=== PATIENT | female | born 1985 | race Caucasian/White ===

== ENCOUNTER 2020-03-13 11:30 | Outpatient (CLI) | payer OTHER, SELFPAY ==
--- NOTE | ~2020-03-13 | US_ITS ---
EXAMINATION: US thyroid EXAM DATE: 03/13/2020 11:52 INDICATION: Multinodular goiter, nontoxic. TECHNIQUE: Multiple grayscale and Doppler images of the thyroid were obtained (by a technologist who performed the scan) and subsequently reviewed. Individual nodules and recommendations may be reporte d in accordance with TI-RADS system as designated by the 2017 ACR White Paper TI-RADS committee. Jerome sebastian is made to prior examination from 08/24/2014. FINDINGS: The right thyroid lobe measures 5.4 x 1.7 x 1.8 cm, the left measuring 5.0 x 1.5 x 1.8 cm. The isthmu s measures 3 mm in thickness. Relatively homogeneous thyroid echogenicity with scattered subcentimete r thyroid nodules, largest up to 5 mm. These are not likely clinically significant, and are not defin itely changed compared to prior study in 2014. IMPRESSION: Stable multinodular goiter. Return to clinical follow-up and if additional palpable abnormality develops a repeat ultrasound can be obtained. Reviewed, dictated and finalized at location A.
== END 2020-03-13 11:31 | disposition home or self-care (01) ==
LOC: ANHIMG 11:32
PROVIDERS: PCP Internal Medicine; Visit Provider Internal Medicine Endocrinology, Diabetes & Metabolism
DX: E04.2 Nontoxic multinodular goiter (principal)
CPT/HCPCS: 76536

== ENCOUNTER 2020-11-03 11:58 | Emergency (ER) | payer OTHER, SELFPAY ==
[2020-11-03 12:20] VITALS: BP 151/91; PULSE 88; RESP 18; TEMP 36.6; O2SAT 99
--- NOTE | 2020-11-03 12:49 | ED.GENADULT ---
HPI - General Adult General Chief complaint: Ear Stated complaint: upper respiratory infection Source: patient and RN notes reviewed Mode of arrival: ambulatory History of Present Illness HPI narrative: This is a 35-year-old female who presented to urgent care with complaints of throat pain along with jaw and ear pain to the left side. Patient notes that approximately 1 month ago she developed the symptoms and her condition has worsened and she has taken [id number] ibuprofen for relief. Patient does not have a primary care physician due to insurance. She has not taken her home medication because she is unable to get a primary care physician due to her. Patient also notes that her blood pressure was slightly elevated, she notes that her life has been troublesome for the last few weeks. Patient will monitor her blood pressure and follow-up with her primary care physician if any medication is needed. The patient denies SOB, CP, palpitation, extremity numbness, lightheadedness, dizziness, constipation, diarrhea, chills, or fever. Related Data Home Medications Medication Instructions Recorded Confirmed dextroamphetamine-amphetamine 15 mg PO BID 11/03/20 11/03/20 [Adderall] Allergies Allergy/AdvReac Type Severity Reaction Status Date / Time No Known Allergies Allergy Verified 07/02/20 11:44 Review of Systems Review of Systems: Narrative: A 14 organ system Review of Systems was performed and pertinent positives included in the HPI, otherwise remaining ROS is negative. [facility] Past Medical History Medical History (Updated 11/03/20 @ 12:49 by BANDAR Boone) Obstructive sleep apnea Family History Family History (Updated 11/03/20 @ 12:53 by BANDAR Boone) Other Family history non-contributory Social History Social History Gender identity (if verbalized by the patient): Female Exam Narrative: Exam Narrative: GENERAL: This is a well-nourished, well-developed patient, in no apparent distress. HEAD: normocephalic, atraumatic. EYES: PERRL. Sclera clear/white. Vision is grossly intact. EARS: External ears normal, auditory canals clear and without drainage, TMs normal without perforation. Hearing grossly intact. NOSE: External nose normal with no obvious nasal discharge, nares without redness, no rhinorrhea. THROAT: Mucous membranes moist, posterior pharynx edematous with erythematous and enlarged tonsils. NECK: Neck supple, non-tender without lymphadenopathy, masses or thyromegaly. CARDIOVASCULAR: Regular rate and rhythm without murmurs, gallops, or rubs. RESPIRATORY: Clear to auscultation. Breath sounds equal bilaterally. No wheezes, rales, or rhonchi. GASTROINTESTINAL: Abdomen soft, non-tender, nondistended. Bowel sounds are active. No hepato-splenomegaly, or palpable masses. No guarding. SKIN: warm, intact with no suspicious lesions or rash, good texture and turgor. NEURO: awake, alert, and oriented to person, place and time. There were no obvious focal neurologic abnormalities. Steady gait EXTREMITIES: Normal range of motion. No edema. No calf tenderness. Negative Homans sign bilaterally. BACK: Nontender without deformity or crepitance. No flank tenderness. Course Course Emergency Course: Patient will discharge home with Augmentin and zyrv-[id number] medication Vital Signs Vital signs: Vital Signs Temperature 97.9 F 11/03/20 12:20 Pulse Rate 88 11/03/20 12:20 Respiratory Rate 18 11/03/20 12:20 Blood Pressure 151/91 H 11/03/20 12:20 Pulse Oximetry 99 11/03/20 12:20 Temperature 97.9 F 11/03/20 12:20 Pulse Rate 88 11/03/20 12:20 Respiratory Rate 18 11/03/20 12:20 Blood Pressure 151/91 H 11/03/20 12:20 Pulse Oximetry 99 11/03/20 12:20 Medical Decision Making Differential Diagnosis Differential Diagnosis: Otitis media, strep, pharyngitis, sinusitis, viral infection Vital Signs Vital Signs: Vital Signs Temperature 97.9 F 11/03/20 12:20
== END 2020-11-03 12:50 | disposition home or self-care (01) ==
PROVIDERS: Emergency Provider Nurse Practitioner
DX: J02.9 Acute pharyngitis, unspecified (principal); G47.33 Obstructive sleep apnea (adult) (pediatric); F41.9 Anxiety disorder, unspecified; F32.9 Major depressive disorder, single episode, unspecified
CPT/HCPCS: 87081; 87880; 99213; G0463

== ENCOUNTER 2021-10-31 12:15 | Emergency (ER) | payer OTHER, SELFPAY ==
[2021-10-31 12:36] VITALS: BP 132/77; PULSE 106; RESP 18; TEMP 36.3; O2SAT 99
--- NOTE | 2021-10-31 13:03 | ED.URI ---
HPI - URI/Sore Throat General Chief Complaint: Upper Respiratory Infection Stated Complaint: Headache,Body Aches,Cough Time Seen by Provider: 10/31/21 13:03 Source: patient Mode of arrival: ambulatory Limitations: no limitations History of Present Illness HPI Narrative: 36-year-old female presents with complaint of nasal congestion, cough, headaches, fatigue for 5 days. Reports today she feels like she cannot smell anything . Has not done a home COVID test. Is only taking ibuprofen to treat her symptoms. No chest pain or shortness of breath. Work will not let patient return until she has a COVID test. All systems reviewed and negative except as noted above. Related Data Home Medications Medication Instructions Recorded Confirmed dextroamphetamine-amphetamine 15 15 mg PO BID 11/03/20 10/31/21 mg tablet (Adderall) lisdexamfetamine 40 mg capsule 1 cap PO DAILY 10/31/21 10/31/21 (Vyvanse) metformin 500 mg tablet,extended 1 tablet PO BID 10/31/21 10/31/21 release 24 hr spironolactone 50 mg tablet 1 tablet PO DAILY 10/31/21 10/31/21 Allergies Allergy/AdvReac Type Severity Reaction Status Date / Time No Known Allergies Allergy Verified 10/31/21 12:32 Review of Systems Review of Systems: CONSTITUTIONAL: Denies fever, chills, or sweats. EYES: Denies visual changes, redness, or discharge. ENT: Reports rhinorrhea, congestion, sore throat. Denies CARDIOVASCULAR: Denies chest pain, palpitations, or edema. RESPIRATORY: Reports cough. Denies dyspnea. GASTROINTESTINAL: Denies abdominal pain, nausea, vomiting, or diarrhea. GENITOURINARY: Denies dysuria or hematuria. SKIN: Denies rash or itching. MUSCULOSKELETAL: Denies back pain, joint pain, or myalgia. NEUROLOGIC: Reports headache. Denies numbness, or weakness. PSYCHIATRIC: Denies anxiety or depression. All other systems reviewed are negative, except as documented in HPI. [facility] Past Medical History Medical History (Updated 10/31/21 @ 14:06 by Taylor Amaya NP) Obstructive sleep apnea Family History Family History (Updated 11/03/20 @ 12:53 by BANDAR Boone) Other Family history non-contributory Social History Social History Gender identity (if verbalized by the patient): Female Comments At time of signature, agree with nursing past medical, surgical, social and family history. There is no relevant family history pertinent to the presenting complaint. Exam Narrative: GENERAL: This is a well-nourished, well-developed patient, in no apparent distress. HEAD: normocephalic, atraumatic. EYES: PERRL. Sclera clear/white. Vision is grossly intact. EARS: External ears normal, auditory canals clear and without drainage, fluid to bilateral TMs. No erythema or perforation. NOSE: External nose normal with clear nasal drainage, erythema and congestion to nares. THROAT: Mucous membranes moist, mild erythema to posterior pharynx. NECK: Neck supple, non-tender without lymphadenopathy, masses or thyromegaly. CARDIOVASCULAR: Regular rate and rhythm without murmurs, gallops, or rubs. RESPIRATORY: Clear to auscultation. Breath sounds equal bilaterally. No wheezes, rales, or rhonchi. SKIN: warm, Dry, intact with no suspicious lesions or rash, good texture and turgor. NEURO: awake, alert, and oriented to person, place and time. There were no obvious focal neurologic abnormalities. EXTREMITIES: Normal range of motion to all extremities. Course Course Level of Care: Express Care Visit Vital Signs Vital signs: Vital Signs Temperature 36.3 C L 10/31/21 12:36 Pulse Rate 106 H 10/31/21 12:36 Respiratory Rate 18 10/31/21 12:36 Blood Pressure 132/77 10/31/21 12:36 Pulse Oximetry 99 10/31/21 12:36 Oxygen Delivery Room Air 10/31/21 12:36 Temperature 36.3 C L 10/31/21 12:36 Pulse Rate 106 H 10/31/21 12:36 Respiratory Rate 18 10/31/21 12:36 Blood Pressure 132/77 10/31/21 12:36 Pulse Oximetry 99 10/31/21 12:36
== END 2021-10-31 13:30 | disposition home or self-care (01) ==
PROVIDERS: Emergency Provider Nurse Practitioner Family
DX: J06.9 Acute upper respiratory infection, unspecified (principal); H65.03 Acute serous otitis media, bilateral; Z20.822 Contact with and (suspected) exposure to COVID-19; G47.33 Obstructive sleep apnea (adult) (pediatric)
CPT/HCPCS: 87426; 87804; 99213; C9803; G0463

== ENCOUNTER 2023-06-29 14:51 | Emergency (ER) | payer OTHER, SELFPAY ==
--- NOTE | 2023-06-29 14:54 | ED.FEMALEGU ---
HPI - Female Genitourinary General Chief complaint: Urogenital-Female Stated complaint: Urinary Problems Time Seen by Provider: 06/29/23 14:52 Source: patient Mode of arrival: ambulatory Limitations: no limitations History of Present Illness HPI Narrative: Becky is a 38-year-old female patient presenting to the clinic today with complaints of possible UTI. She reports she is having urgency to void and burning with urination that started this morning. Related Data Home Medications Medication Instructions Recorded Confirmed dextroamphetamine-amphetamine 15 15 mg PO BID 11/03/20 10/31/21 mg tablet (Adderall) lisdexamfetamine 40 mg capsule 1 cap PO DAILY 10/31/21 10/31/21 (Vyvanse) metformin 500 mg tablet,extended 1 tablet PO BID 10/31/21 10/31/21 release 24 hr spironolactone 50 mg tablet 1 tablet PO DAILY 10/31/21 10/31/21 Allergies Allergy/AdvReac Type Severity Reaction Status Date / Time No Known Allergies Allergy Verified 06/29/23 14:52 Review of Systems Review of Systems: Pertinent positives per HPI. Patient denies any fever, chills, rash, headache, visual changes, dizziness, cough, shortness of breath, chest pain, palpitations, nausea, vomiting, diarrhea, constipation, abdominal pain, or any urinary issues. [facility] Past Medical History Medical History Obstructive sleep apnea Family History Family History Other Family history non-contributory Social History Social History Gender identity (if verbalized by the patient): Female Comments At the time of my signature, I reviewed and agree with the nursing past medical, surgical, social, and family history. There is no relevant family history pertinent to the patient complaint. Exam Narrative: General: Well-developed, obese, in no apparent distress. Head: Normocephalic, atraumatic. Cardio: Regular rate and rhythm, s1 and s2 normal, no murmur appreciated. Resp: Clear to auscultation bilaterally, no rhonchi, rales, wheezing or rubs. Abdomen: Soft, pliable, bowel sounds present in all quadrants, non-tender to palpation, no organomegly, no CVAT tenderness. Course Course Emergency Course: Portions of this record may have been created with voice recognition software. Level of Care: Express Care Visit Vital Signs Vital signs: Vital signs reviewed MDM - Female Genitourinary MDM Narrative Medical decision making narrative: At the time of visit patient is resting comfortably on the exam table. Patient appears to be nontoxic. Labs: UA was obtained. Urine was positive for 1+ leukocyte, 1+ bili, and trace ketones Plan: Blood pressure is elevated in the clinic today. Recommend follow-up with her PCP to have this further evaluated. Will send in Macrobid and Pyridium for UTI/UTI symptoms. Supportive measures were discussed with the patient and they voiced understanding discharge instructions and agrees to treatment plan. Return precautions reviewed Differential Diagnosis Differential diagnosis: Likely urinary tract infection and cystitis Discharge Plan Discharge Clinical Impression: Elevated blood pressure reading in office without diagnosis of hypertension UTI (urinary tract infection) Qualifiers: Urinary tract infection type: acute cystitis Hematuria presence: without hematuria Qualified Code(s): N30.00 - Acute cystitis without hematuria Patient Disposition: Home, Self-Care Condition: Stable Instructions: Antibiotic Form, Urinary Tract Infection in Women (ED), Hypertension (ED) Additional Instructions: UA positive for 1+ leukocyte, trace a ketone, and 1+ bili-will send urine for culture. Recommend recheck with your PCP in 2 weeks Increase fluids and stay well hydrated Wipe front to back. May use wet wipes. Avoid tub baths If sexually
[2023-06-29 15:00] VITALS: BP 151/106; PULSE 124; RESP 16; TEMP 36.2; O2SAT 99
== END 2023-06-29 15:21 | disposition home or self-care (01) ==
PROVIDERS: Emergency Provider Nurse Practitioner Family
DX: N30.00 Acute cystitis without hematuria (principal); B96.20 Unspecified Escherichia coli [E. coli] as the cause of diseases classified elsewhere; R03.0 Elevated blood-pressure reading, without diagnosis of hypertension
CPT/HCPCS: 81003; 87077; 87086; 87186; 99213; G0463

== ENCOUNTER 2025-01-08 17:50 | Emergency (ER) | payer OTHER, SELFPAY ==
--- OUTSIDE RECORDS SUMMARY | 2025-01-08 17:54 | XMS_ITS ---
Author Organization [facility] Address [address] [place] [address] Care Team Providers Care Cardroom Drawing Runner Name Role Phone Angela Byrne Primary Care Provider REASON FOR VISIT 3 Month Psych F/U [...] Female Encounters Encounter Location Date Provider Diagnosis [facility] [address] [facility] [place] [address] 11/03/2023 Angela Byrne Depression with anxiety F41.8 and Attention deficit hyperactivity disorder (ADHD), unspecified ADHD type F90.9 Assessments Encounter Date Diagnosis (ICD Code) Assessment Notes Treatment Notes Treatment Clinical Notes Section Notes 11/03/2023 Depression with anxiety (ICD-10 - F41.8) 11/03/2023 Attention deficit hyperactivity disorder (ADHD), unspecified ADHD type (ICD-10 - F90.9) Plan Of Treatment No Information Progress Notes * Curtis MELENDEZOB:1985 ([age] yo F)Acc No.[id number]:11/03/2023 UNLOCKED PROGRESS NOTE Patient: Becky BROWN Provider: Dori Byrne DNP, PMJULIAP-BC, ARMATURE WINDER HELPER REPAIR :1985 A ge:38 Y S ex:Female Date:11/03/2023 Address:[address] [place] [address], [id number] Subjective: * Chief Complaints: * 1 . 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
--- OUTSIDE RECORDS SUMMARY | 2025-01-08 17:54 | XMS_ITS | Clinical Summary ---
Author Organization [facility] Address [address] [place] [address] Care Team Providers Care Mathematics Department Chair Name Role Phone Madhu Dunham MD Primary Care Provider [phone] Source Comments [facility] [employer],non-owned Affiliates and Associated Physician Practices is amultiple site organization consisting of ambulatory clinics and hospital sitesin [place], [place], [place] and [place]. This disclosure is being madepursuant to the Care Everywhere program and may not contain all information available regarding this patient. 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 Gender Identity Not on file Sexual Orientation Not on file Plan of Treatment Health Maintenance Due Date Last Done Comments HIV SCREENING 02/16/2000 HEPATITIS C SCREENING 02/11/2003 DTAP/TDAP/TD VACCINES (1 - Tdap) 02/16/2004 HEPATITIS B VACCINE (1 of 3 - 19+ 3-dose series) 02/16/2004 HPV VACCINE (1 - 3-dose SCDM series) 02/16/2012 COVID-19 VACCINE (1 - 2023-2 5 season) 2024 DEPRESSION SCREENING 05/25/2024 INFLUENZA VACCINE (#1) 2025 ZOSTER VACCINE (1 of 2) 2035 HIB VACCINE Aged Out No longer eligi ble based on patient's age to complete this topic MENINGOCOCCAL (Group B) VACC INE SHARED DECISION-MAKING Aged Out No longer eligibl e based on patient's age to complete this topic MENINGOCOCCAL GROUPS A/C/Y/W VACCINE Aged Out No longer eligible b ased on patient's age to complete this topic PNEUMOCOCCAL VACCINE Aged Out No long er eligible based on patient's age to complete this topic Insurance [id number] [id number] [facility] Care Teams Mathematics Department Chair Relationship Specialty Start Date End Date Madhu Dunham MD [address] [address] PCP - General 02/24/12
--- OUTSIDE RECORDS SUMMARY | 2025-01-08 17:54 | XMS_ITS | Clinical Summary ---
Author Organization [facility] Address [address] [place] [address] Care Team Providers Care Per Diem Rn Name Role Phone None, Provider MD Primary Care Provider Unavaila ble Allergies No known active allergies Medications No known medications Encounters Date Type Department Care Team Description 12/27/2024 11:25 AM CDT - 12/27/2024 11:58 AM CDT Emergency [facility] Emergency Room [id number] [place], [place] [id number] Jose Bland MD Medical Problem Discharge Disposition: Home or Self Care (Routine Discharge) 12/27/2024 Travel from Last 3 Months Family History Medical History Relation Comments Hypertension Father Relation Status Comments Father Social History Tobacco Use Types Packs/Day Years Used Date Smoking Tobacco: Every Day Cigarettes Smokeless Tobacco: Never Alcohol Use Standard Drinks/Week Comments Not Currently 0 (1 standard drink = 0.6 oz pur e alcohol) Comments No Sex and Gender Information Value Date Recorded Sex Assigned at Not on file Legal Sex Female 7:09 PM CDT Gender Identity Not on file Sexual Orientation Not on file Last Filed Vital Signs Vital Sign Reading Time Taken Comments Blood Pressure 129/67 12/27/2024 11:29 AM CDT Pulse 96 12/27/2024 11:29 AM CDT Temperature 36.4 C (97.5 F) 12/27/2024 11:29 AM CDT Respiratory Rate 18 12/27/2024 11:29 AM CDT Oxygen Saturation 100% 12/27/2024 11:29 AM CDT Inhaled Oxygen Concentration - - Weight 97.5 kg (215 lb) 12/27/2024 11:29 AM CDT Height 172.7 cm (5' 8) 12/27/2024 11:29 AM CDT Body Mass Index 32.69 12/27/2024 11:29 AM CDT Plan of Treatment Health Maintenance Due Date Last Done Comments Cervical Cancer Screening Pa p Smear (Age 30 to 64) Every 3 Years 1985 Annual Physical 02/16/1988 Hepatitis C 2003 Hepatitis B Vaccines (1 of 3 - 19+ 3-dose series) 02/16/2004 Pneumococcal Vaccine: Pediatrics (0 to 5 Years) and At-Risk Patients (6 to 49 Years) (1 of 2 - PCV) 02/16/2004 HPV Vaccines (1 - 3-dose SCD M series) 02/16/2012 Cervical Cancer Screening Pa p with HPV Testing (Age 30 to 64) Every 5 Years 2015 Cervical Cancer Screening wi th HPV 2015 COVID-19 Vaccine (3 - 2023-2 5 season) 2024 12/30/2020, 08/13/2020 DTaP, Tdap and Td Vaccines ( 3 - Td or Tdap) 02/16/2028 2018, 11/29/2013 Meningococcal B Vaccine Aged Out No l onger eligible based on patient's age to complete this topic Meningococcal Vaccine Aged Out No nichole eddi eligible based on patient's age to complete this topic RSV Immunizations Under 20 Months Aged Out No longer eligible b ased on patient's age to complete this topic Insurance [employer]ICA[employer] Care Teams Per Diem Rn Relationship Specialty Start Date End Date None, Provider, PCP - General UNKNOWN PHYSICIAN SPECIALTY 12/27/24
--- OUTSIDE RECORDS SUMMARY | 2025-01-08 17:54 | XMS_ITS | Patient Health Record ---
Author Organization [facility] Address [address] [place] [address] Care Team Providers Care Petroleum Production Engineer Name Role Phone ByrneAngela Primary Care Provider Allergies No Known Allergies Reason For Referral No Information Medications Medication SIG (Take, Route, Frequency, Duration) [...] a day; Duration: 30 days 09/23/2023 Active Effexor XR 150 MG 1 capsule with food Orally Once a day; Duration: 30 days 05/07/2021 Active Wellbutrin XL 300 MG 1 tablet in the morning Orally Once a day; Duration: 30 days Active Multivitamin Adult - 1 tablet Orally Once a day; Duration: 30 day(s) Active metFORMIN HCl ER 500 MG 1 tablet Orally twice a day; Duration: 30 days Not-Taking Social History Tobacco Use: Social History Observation Description Date Details (start date - stop date) Current Smoker NA - NA Sex Assigned At : Social History Observation Description Sex Assigned At Female Dont use, Tobacco Use/Smoking Question Answer Notes Are you a current smoker How often do you smoke cigarettes? some days, bu t not every day How many cigarettes a day do you smoke? 5 or les s Additional Findings: Tobacco User Light cigarett e smoker ((1-9 cigs/day) Alcohol Screen (Audit-C) Question Answer Notes Did you have a drink containing alcohol in the p ast year? Yes Tobacco Control (Standard) Question Answer Notes Tobacco use: Current smoker How often do you smoke cigarettes? Every day Problems Problem Type SNOMED Code ICD Code Onset Dates Problem Status W/U Status Risk Notes Problem Tobacco user (199371035) Nicotine dependence, unspecified, uncomplicated (F17.200) Active confirmed Problem Mixed anxiety and depressive disorder (523412004) Depression with anxiety (F41.8) Active confirmed Problem Attention deficit hyperactivity disorder (728566562) Attention deficit hyperactivity disorder (ADHD), unspecified ADHD type (F90.9) Active confirmed Problem Polycystic ovary syndrome (disorder) (133117165) PCOS (polycystic ovarian syndrome) (E28.2) Active confirmed Problem Chronic fatigue syndrome (37619250) Chronic fatigue (R53.82) Active confirmed Problem Moderate recurrent major depression (78038067) MDD (major depressive disorder), recurrent episode, moderate (F33.1) Active confirmed Problem Binge eating disorder (619062247) Binge eating disorder (F50.81) Active confirmed Problem Tobacco use (394652900) Tobacco use disorder (F17.200) Active confirmed Problem Obesity (965210949) Obesity, unspecified classification, unspecified obesity type, unspecified whether serious comorbidity present (E66.9) Active confirmed Plan Of Treatment Pending Test Test Name Order Date Test, Urine 11/14/2020 12 Panel Urine Drug Screen 11/14/2020 Future Test Test Name Order Date Sedimentation Rate-Westergren* 1 C-Reactive Protein, Quant 12/05/2020 Vitamin D, 25-Hydroxy* 12/05/2020 ERIC w/Reflex if Positive 12/05/2020 Lipid Panel* 12/05/2020 CMP 14 Comprehensive Metabolic Panel* Hemoglobin A1c 12/05/2020 Insurance Providers Payer Name Payer Address Payer Phone Subscriber Number Group Number Insured Name Patient Relationship to Insured Coverage Start Date Coverage End Date [facility] Attn Claims Department [address] [address] [phone] [id number] Becky Melendez Self - patient is the insured [employer] Attn Claims Department [address] [place] [address] [id number] Becky Melendez Self - patient is the insured 1 [employer] Attn Claims Department [address] [place] [address] [phone] Becky Melendez Self - patient is the insured 1 Medical (General) History Medical History History ICD Code Depression with anxiety F41.8 Attention deficit hyperactivity disorder (ADHD), unspecified ADHD type F90.9 PCOS ?Rheumatoid arthritis Kristina Surgical History Surgery Date(Month/Year) 2009 2018 Hospitalization History Reason Date(Month/Year) C-Sections
[2025-01-08 18:09] VITALS: BP 137/78; PULSE 99; RESP 16; TEMP 36.3; O2SAT 99
--- NOTE | 2025-01-08 18:23 | ED.URI ---
HPI - URI/Sore Throat General Chief Complaint: Upper Respiratory Infection Stated Complaint: throat pain/bodya aches patient presents to the [facility] accompanied by daughter who is also a patient at the [facility] with complaints of nasal congestion, cough, sore throat, headaches, fatigue, chills, and body aches that began 2 days ago. Patient reports using some ohts-rbu-atreiyr cough cold medication and Tylenol at home with minimal relief of symptoms. Patient was told flu and COVID have been going around and they should be tested. Denies known fever, dizziness, shortness of breath, nausea, vomiting, diarrhea, or ear pain. Related Data Home Medications ?Medication ?Instructions ?Recorded ?Confirmed ?Last Taken ?Type venlafaxine 150 mg 150 mg PO DAILY 06/29/23 06/29/23 Unknown History capsule,extended release 24 hr L.acid,bul,para,rham-B.anim,long cap PO 06/10/24 Unknown History 10 billion cell-inulin 100 mg capsule (Probitoic Digestive Support (6 strain)) dextroamphetamine-amphetamine 15 15 mg PO BID 06/10/24 Unknown History mg tablet (Adderall) multivitamin (Daily Multi-Vitamin 1 tablet PO DAILY 06/10/24 Unknown History tablet) Allergies Allergy/AdvReac Type Severity Reaction Status Date / Time No Known Allergies Allergy Verified 01/08/25 18:22 Review of Systems Constitutional: Constitutional: Reports as per HPI, Reports chills, Reports fatigue, Denies fever(s) and Denies weakness Eyes: Eyes: Reports no additional eye complaints ENT: Reports as per HPI, Denies vertigo, Denies dizziness, Reports nasal congestion and Reports sore throat Cardiovascular: Cardiovascular: Reports no additional cardiovascular complaints Respiratory: Respiratory: Reports as per HPI, Reports chest congestion, Reports cough, Denies dyspnea and Denies wheezing Gastrointestinal: Gastrointestinal: Reports as per HPI, Denies abdominal pain, Denies diarrhea, Denies nausea and Denies vomiting Genitourinary: Genitourinary: Reports no additional female genitourinary complaints Musculoskeletal: Musculoskeletal: Reports as per HPI, Reports myalgias, Denies arthralgias and Denies joint swelling Integumentary/Breasts: Skin/Breast: Reports as per HPI, Denies erythema and Denies rash Neurologic: Reports as per HPI, Reports headache(s) and Denies focal weakness Psychiatric: Psychiatric: Reports no additional psychiatric complaints Endocrine: Endocrine: Reports no additional endocrine complaints Hematologic/Lymphatic: Hematologic/Lymphatic: Reports no additional hematologic/lymphatic complaints Allergic/Immunologic: Allergic/Immunologic: Reports no additional allergic/immunologic complaints [facility] Past Medical History Medical History Obstructive sleep apnea Family History Family History Other Family history non-contributory Social History Social History Gender identity (if verbalized by the patient): Female Exam Const: General: no acute distress and diaphoretic Nutritional Appearance: well nourished Orientation/consciousness: patient oriented x3 Limitations: no limitations HENMT: Head: normal to inspection Ears: external ears normal and TM's normal bilaterally Face/Nose/Sinus: Normal external nose present and Normal nares present Face and sinus: normal facial exam and sinuses nontender Mouth: Yes Normal oral and palatal mucosa present, Yes lip normal and Yes moist mucous membranes Throat: posterior oropharynx abnormal ( Mild erythema and edema noted. No exudate) Neck: Neck: normal visual inspection and no lymphadenopathy Resp: Effort & Inspection: normal respiratory effort Auscultation: clear to auscultation bilaterally Other: dry cough noted Cardio: Rate: regular rate Rhythm: regular rhythm Skin: General skin exam: normal color Rashes: no rashes Wounds: no wounds Neuro: General: patient oriented x3 Speech: normal speech Gait exam (Neuro): Normal gait present Extrem: General: no clubbing, cyanosis or edema and no pedal edema Psych: Mental Status: mental status grossly normal Affect: normal affect Attitude: cooperative Course Course Level of Care: Express Care Visit Vital Signs Vital signs: Vital Signs Temperature 97.4 F L 01/08/25 18:09 Pulse Rate 99 01/08/25 18:09 Respiratory Rate 16 01/08/25 18:09 Blood Pressure 137/78 01/08/25 18:09 Pulse Oximetry 99 01/08/25 18:09 Oxygen Delivery Room Air 01/08/25 18:09 Temperature 97.4 F L 01/08/25 18:09 Pulse Rate 99 01/08/25 18:09 Respiratory Rate 16 01/08/25 18:09 Blood Pressure 137/78 01/08/25 18:09 Pulse Oximetry 99 01/08/25 18:09 Oxygen Delivery Room Air 01/08/25 18:09 MDM - URI/Sore Throat MDM Narrative Medical decision making narrative: strep, COVID, flu testing negative will send culture for strep Discharge instructions reviewed with patient, as well as provided in writing per nursing staff. The instructions also include specific and strict return/GO TO THE ER as well as f/u information. All questions have been answered, and the patient deny any further questions with discharge and discharge plan. Differential Diagnosis Differential diagnosis: Likely upper respiratory infection, otitis media, sinusitis, viral infection, influenza and pharyngitis Medical Records Attestation: I reviewed the patient's medical records. Lab Data Attestation: I reviewed the patient's lab results. Labs: Lab Results 01/08/25 01/08/25 Range/Units 18:28 18:34 POC Influenza A Ag Negative (Negative) POC Influenza B Ag Negative (Negative) POC SARS CoV-2 Ag Negative (Negative) POC Grp A Strep Screen Negative (Negative) Discharge Plan Discharge Clinical Impression: Upper respiratory infection Patient Disposition: Home Condition: Stable Instructions: Antibiotic Form, Upper Respiratory Infection (ED), Cold Symptoms (ED) Additional Instructions: Viral illness may last between 7-12days; antibiotic is NOT recommended at this time. Recommend antihistamine such as Benadryl at night time and Claritin/Zyrtec/Lauren during the day. Also using steroid nasal spray like Flonase can help with symptoms and congestion. Using sudafed for significant congestion will also give some relief. Cough syrup may cause drowsiness; avoid driving or take it at night time. Use inhaler as needed for cough, wheezing, shortness of breath or chest tightness. Also, recommend symptomatic treatment includes: rest, fluids, increase humidity of the air at home. Recommend Acetaminophen or nonsteroidal anti-inflammatory agents(NSAIDs) as directed in the bottle to reduce fever and/pain/headache. Avoid smoking/second-hand smoke. Limit visits to areas with large crowds. Frequent hand washing or hand section supervisor is one of the best ways to prevent spread of infection. Please schedule a followup visit with your personal physician for further evaluation and treatment within 3-5days. Including recheck and discussion of your blood pressure. If your symptoms persist, change or worsen significantly before you can contact your personal physician then please, without delay, go to the emergency department for further evaluation. Patient Language: Setswana Prescriptions: No Action bupropion HCl [Wellbutrin XL] 300 mg tablet extended release 24 hr 300 mg PO QAM Qty: 30 0RF multivitamin [Daily Multi-Vitamin] Tablet 1 tablet PO DAILY dextroamphetamine-amphetamine [Adderall] 15 mg tablet 15 mg PO BID Rx Instructions: administer doses at least 4-6 hours apart Probiotic Digest Supp (6-strn) 10 billion cell -100 mg capsule PO venlafaxine 150 mg capsule,extended release 24hr 150 mg PO DAILY Follow-up/Referrals: PHYSICIAN,DELIVERY SUPERVISOR [Primary Care Provider] - Stand Alone Forms: Work/School Release IP Time of Disposition: 18:40
[2025-01-08 18:29] LABS: EDSTREPNEGPOS1 Negative (Negative)
[2025-01-08 18:36] LABS: EDCOVIDSCREEN Negative (Negative); EDINFLUASCREEN Negative (Negative); EDINFLUBSCREEN Negative (Negative)
== END 2025-01-08 18:45 | disposition home or self-care (01) ==
PROVIDERS: Emergency Provider Nurse Practitioner Family; Referring Provider Emergency Medicine
DX: J06.9 Acute upper respiratory infection, unspecified (principal); Z20.822 Contact with and (suspected) exposure to COVID-19
CPT/HCPCS: 87081; 87426; 87804; 87880; 99213; G0463

== ENCOUNTER 2025-03-13 14:18 | Emergency (ER) | payer OTHER, SELFPAY ==
--- OUTSIDE RECORDS SUMMARY | 2023-11-03 10:00 | XMS_ITS ---
Author Organization [facility] Address [address] [place] [address] Care Team Providers Care Centrifugal Separator Name Role Phone Angela Byrne Primary Care Provider [phone] REASON FOR VISIT 3 Month Psych F/U & Med Refill Medications Medication SIG (Take, Route, Frequency, Duration) Notes Start Date End Date Status Vyvanse 60 MG 1 capsule in the morning Orally Once a day; Duration: 8 days Bridge fill. 10/26/2023 Active Vyvanse 60 MG 1 capsule in the morning Orally Once a day; Duration: 7 days 10/28/2023 Active Vyvanse 60 MG 1 capsule in the morning Orally Once a day; Duration: 30 days 09/22/2023 Active Vyvanse 60 MG 1 capsule in the morning Orally Once a day; Duration: 30 days 09/23/2023 Active Multivitamin Adult - 1 tablet Orally Once a day; Duration: 30 day(s) Active Effexor XR 150 MG 1 capsule with food Orally Once a day; Duration: 30 days 05/07/2021 Active Wellbutrin XL 300 MG 1 tablet in the morning Orally Once a day; Duration: 30 days Active metFORMIN HCl ER 500 MG 1 tablet Orally twice a day; Duration: 30 days Not-Taking Social History Sex Assigned At : Social History Observation Description Sex Assigned At Female Encounters Encounter Location Date Provider Diagnosis [facility] [address] [facility] [address] 11/03/2023 Angela Byrne Depression with anxiety F41.8 and Attention deficit hyperactivity disorder (ADHD), unspecified ADHD type F90.9 Assessments Encounter Date Diagnosis (ICD Code) Assessment Notes Treatment Notes Treatment Clinical Notes Section Notes 11/03/2023 Depression with anxiety (ICD-10 - F41.8) 11/03/2023 Attention deficit hyperactivity disorder (ADHD), unspecified ADHD type (ICD-10 - F90.9) Plan Of Treatment No Information Progress Notes * Curtis MELENDEZOB:1985 ([age] yo F)Acc No.[id number]:11/03/2023 UNLOCKED PROGRESS NOTE Patient: Becky BROWN Provider: Dori Byrne DNP, PMHNP-BC, ROOF TRUSS MACHINE TENDER :1985 A ge:38 Y S ex:Female Date:11/03/2023 Address:[address] [place] [address], [facility] Subjective: * Chief Complaints: * 1 . 3 Month Psych F/U & Med Refill. * Medical History: * Social History: P rimary Social History: L iving Arrangement L iving Arrangement: I ndependent Living, Dependent Living L iving with: Suri garcia I s this a supportive environment? 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 * Medications: T aking Multivitamin Adult - Tablet 1 tablet Orally Once a day , Taking Effexor XR 150 MG Capsule Extended Release 24 Hour 1 capsule with food Orally Once a day , Taking Wellbutrin XL 300 MG Tablet Extended Release 24 Hour 1 tablet in the morning Orally Once a day , Taking Vyvanse 60 MG Capsule 1 capsule in the morning Orally Once a day , Taking Vyvanse 60 MG Capsule 1 capsule in the morning Orally Once a day , Taking Vyvanse 60 MG Capsule 1 capsule in the morning Orally Once a day , Notes to Pharmacist: Mu fill., Taking Vyvanse 60 MG Capsule 1 capsule in the morning Orally Once a day , Not-Taking metFORMIN HCl ER 500 MG Tablet Extended Release 24 Hour 1 tablet Orally twice a day Objective: * Vitals: Assessment: * Assessment: 1. D epression with anxiety - F41.8 (Primary) 2 . A ttention deficit hyperactivity disorder (ADHD), unspecified ADHD type - F90.9 Plan: * Treatment: * * Electronic signature of Shelli Byrne on 03/13/2025 at 06:17 PM CDT Sign off status: Pending * Provider: Dori Byrne DNP, PMHNP-BC, ROOF TRUSS MACHINE TENDER Date: 0 11/03/2023 Generated for Printing/Faxing/eTransmitting on: 1 06:17 PM CDT
--- NOTE | ~2025-03-13 | XR_ITS ---
EXAMINATION: XR elbow LT min 3V, 03/13/2025 15:10 CDT HISTORY: medial pain EDEMA RECENT STRESS/LIFT WORK RELATED COMPARISON: No comparisons available. Findings: No acute fracture or malalignment. No significant degenerative changes. Soft tissues unremarkable. Impression: No acute fracture or malalignment. Reviewed, dictated and finalized at location P. Impression: No acute fracture or malalignment.
[2025-03-13 14:28] VITALS: BP 152/94; PULSE 103; RESP 16; TEMP 36.6; O2SAT 98
--- NOTE | 2025-03-13 16:17 | ED.UPPEXIN ---
HPI - Extremity Injury (Upper) General Chief Complaint: Extremity Injury, Upper Stated Complaint: pain to left elbow while at work Time Seen by Provider: 03/13/25 14:44 History of Present Illness HPI narrative: Patient is a 40-year-old female who presents ER with left elbow pain. Medial aspect. 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 She has been having radiating pain down the arm and up the arm from the medial aspect in occasionally feels tingling. No improvement with vmrd-voy-oxydumo medication. Increased pain with lifting items. Concerned she may have some swelling of the forearm. Related Data Home Medications ?Medication ?Instructions ?Recorded ?Confirmed ?Last Taken ?Type venlafaxine 150 mg 150 mg PO DAILY 06/29/23 06/29/23 Unknown History capsule,extended release 24 hr L.acid,bul,para,rham-B.anim,long cap PO 06/10/24 Unknown History 10 billion cell-inulin 100 mg capsule (Probitoic Digestive Support (6 strain)) dextroamphetamine-amphetamine 15 15 mg PO BID 06/10/24 Unknown History mg tablet (Adderall) multivitamin (Daily Multi-Vitamin 1 tablet PO DAILY 06/10/24 Unknown History tablet) Allergies Allergy/AdvReac Type Severity Reaction Status Date / Time No Known Allergies Allergy Verified 03/13/25 14:46 Review of Systems Constitutional: Constitutional: Reports no additional constitutional complaints Cardiovascular: Cardiovascular: Reports no additional cardiovascular complaints Respiratory: Respiratory: Reports no additional respiratory complaints Gastrointestinal: Gastrointestinal: Reports no additional gastrointestinal complaints Musculoskeletal: Musculoskeletal: Reports no additional musculoskeletal complaints Neurologic: Reports system reviewed and no additional complaints, except as documented PMFSH Past Medical History Medical History Obstructive sleep apnea Family History Family History Other Family history non-contributory Social History Social History Gender identity (if verbalized by the patient): Female Exam Narrative: GENERAL: Well-appearing, well-nourished, and in no acute distress. HEAD: Normocephalic, atraumatic. ENT: Mucous membranes moist. HEART: Regular rate and rhythm. Normal peripheral pulses. EXTREMITIES: Normal range of motion. No edema. Moderate discomfort over the medial epicondyle of the left elbow. No upper extremity swelling and pain. To the right side. SKIN: Warm, dry, no rash. NEURO: Alert and oriented x3. PSYCH: Normal mood and affect. Course Course Emergency Course: X-ray unremarkable. Patient given reassurance. Recommend scheduled anti-inflammatories, lifting restriction, and recommend a compressive arm sleeve or tennis elbow brace. Patient verbalized understandings. Recommend follow-up with PCP or potentially orthopedic surgery if symptoms persist. May require physical therapy or steroid injection. Vital Signs Vital signs: Vital Signs Temperature 97.9 F 03/13/25 14:28 Pulse Rate 103 H 03/13/25 14:28 Respiratory Rate 16 03/13/25 14:28 Blood Pressure 152/94 H 03/13/25 14:28 Pulse Oximetry 98 03/13/25 14:28 Oxygen Delivery Room Air 03/13/25 14:28 Temperature 97.9 F 03/13/25 14:28 Pulse Rate 103 H 03/13/25 14:28 Respiratory Rate 16 03/13/25 14:28 Blood Pressure 152/94 H 03/13/25 14:28 Pulse Oximetry 98 03/13/25 14:28 Oxygen Delivery Room Air 03/13/25 14:28 MDM - Extremity Injury (Upper) Imaging Data Radiologist's impression: ITS Impressions Elbow X-Ray 03/13/25 15:24 Impression: No acute fracture or malalignment. Discharge Plan Discharge Clinical Impression: Epicondylitis elbow, medial Patient Disposition: Home Condition: Stable Instructions: P.R.I.C.E. Treatment (ED), Carroll's Elbow (ED) Additional Instructions: Ice your elbow for 20 minutes in the morning and the evening. Wear compressive support device to her elbow to help improve your discomfort. Take the naproxen as recommended. Patient Language: Amharic Prescriptions: New naproxen 375 mg tablet 375 mg PO BID Qty: 14 0RF No Action bupropion HCl [Wellbutrin XL] 300 mg tablet extended release 24 hr 300 mg PO QAM Qty: 30 0RF multivitamin [Daily Multi-Vitamin] Tablet 1 tablet PO DAILY dextroamphetamine-amphetamine [Adderall] 15 mg tablet 15 mg PO BID Rx Instructions: administer doses at least 4-6 hours apart Probiotic Digest Supp (6-strn) 10 billion cell -100 mg capsule PO venlafaxine 150 mg capsule,extended release 24hr 150 mg PO DAILY Follow-up/Referrals: Joseph Wright MD [Physician, Orthopedics] - 1 Week PHYSICIAN,BRICK AND TILE MAKING MACHINE OPERATOR [Primary Care Provider, Internal Medicine] Stand Alone Forms: Work/School Release IP
--- OUTSIDE RECORDS SUMMARY | 2025-03-13 18:17 | XMS_ITS | Patient Health Record ---
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 Name Role Phone ByrneAngela Primary Care Provider [phone] Allergies No Known Allergies Reason For Referral [...] W/U Status Risk Notes Problem Tobacco user (145496225) Nicotine dependence, unspecified, uncomplicated (F17.200) Active confirmed Problem Mixed anxiety and depressive disorder (915127026) Depression with anxiety (F41.8) Active confirmed Problem Attention deficit hyperactivity disorder (418145824) Attention deficit hyperactivity disorder (ADHD), unspecified ADHD type (F90.9) Active confirmed Problem Polycystic ovary syndrome (disorder) (188722192) PCOS (polycystic ovarian syndrome) (E28.2) Active confirmed Problem Chronic fatigue syndrome (47977536) Chronic fatigue (R53.82) Active confirmed Problem Moderate recurrent major depression (89947730) MDD (major depressive disorder), recurrent episode, moderate (F33.1) Active confirmed Problem Binge eating disorder (513111930) Binge eating disorder (F50.81) Active confirmed Problem Tobacco use (623854196) Tobacco use disorder (F17.200) Active confirmed Problem Obesity (473604753) Obesity, unspecified classification, unspecified obesity type, unspecified [...] Insured Coverage Start Date Coverage End Date [facility] Attn Claims Department [address] [address] [phone] [id number] Becky Melendez Self - patient is the insured [employer] Attn Claims Department [address] [place] [address] [id number] Becky Melendez Self - patient is the insured 1 [employer] Attn Claims Department [address] [place] [address] [phone] [id number] Becky Melendez Self - patient is the insured 1 Medical (General) History Medical History History ICD Code Depression with anxiety F41.8 Attention deficit hyperactivity disorder (ADHD), unspecified ADHD type F90.9 PCOS ?Rheumatoid arthritis Kristina Surgical History Surgery Date(Month/Year) 2009 2018 Hospitalization History Reason Date(Month/Year) C-Sections
--- OUTSIDE RECORDS SUMMARY | 2025-03-13 18:18 | XMS_ITS | Clinical Summary ---
Author Organization [facility] Address [address] [place] [address] Care Team Providers Care Medical Genetics Director Name Role Phone Madhu Dunham MD Primary Care Provider [phone] Source Comments [facility],non-owned Affiliates and Associated Physician Practices is amultiple site organization consisting of ambulatory clinics and hospital sitesin [place], [place], [place] and [place]. This disclosure is being madepursuant to the Care Everywhere program and may not contain all information available regarding this patient. 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 Gender Identity Not on file Sexual Orientation Not on file Plan of Treatment Health Maintenance Due Date Last Done Comments LIPID TESTING 1985 MAMMOGRAM 1985 HIV SCREENING 02/16/2000 HEPATITIS C SCREENING 02/11/2003 DTAP/TDAP/TD VACCINES (1 - Tdap) 02/16/2004 HEPATITIS B VACCINE (1 of 3 - 19+ 3-dose series) 02/16/2004 HPV VACCINE (1 - 3-dose SCDM series) 02/16/2012 DEPRESSION SCREENING 05/25/2024 COVID-19 VACCINE (1 - 2023-2 5 season) 2025 INFLUENZA VACCINE (#1) 2025 ZOSTER VACCINE (1 [...] patient's age to complete this topic Insurance [facility] Care Teams Medical Genetics Director Relationship Specialty Start Date End Date Madhu Dunham MD [address] [address] PCP - General 02/24/12
--- OUTSIDE RECORDS SUMMARY | 2025-03-13 18:18 | XMS_ITS | Clinical Summary ---
Author Organization [facility] Address [address] [place] [address] Care Team Providers Care Restaurant Area Director Name Role Phone None, Provider MD Primary Care Provider Unavaila ble Allergies No known active allergies Medications No known medications Encounters Date Type Department Care Team Description 12/27/2024 11:25 AM CDT - 12/27/2024 11:[address] [facility] Emergency Room [id number] [place], [place] [id number] Jose Bland MD Medical Problem Discharge Disposition: [...] th HPV 2015 COVID-19 Vaccine (3 - 2024-2 6 season) 2025 12/30/2020, 08/13/2020 Mammogram Screening 2025 Influenza Adult (#1) 2025 03/05/2018, 07/28/2017, 03/23/2015 DTaP, Tdap and Td Vaccines ( 3 [...] patient's age to complete this topic [facility] Sub[facility] Plan / Payer (Ef fective 2023-Present) Name:Becky Melendez Relation to Subscriber:Self Name:Becky Melendez Payer ID:[id number] (NAIC) Type:Not on file Address: [place] [id number] MEDICAID Care Teams Restaurant Area Director Relationship Specialty Start Date End Date None, Provider, PCP - General UNKNOWN PHYSICIAN SPECIALTY 12/27/24
== END 2025-03-13 16:40 | disposition home or self-care (01) ==
PROVIDERS: Emergency Provider Emergency Medicine
DX: M77.02 Medial epicondylitis, left elbow (principal); G47.30 Sleep apnea, unspecified
CPT/HCPCS: 73080; 99283